=== PATIENT | female | born 1970 | race Caucasian/White ===

== ENCOUNTER 2017-02-01 08:20 | Emergency (ER) | payer OTHER ==
--- NOTE | 2017-02-04 19:03 | ER ---
ADMIT: 02/01/2017 RM/LOC: ER [facility] MR#: [id number] [id number] [place] [address] [place] [address] Emergency Room Report SEX: F AGE: 46 : 1970 DATE: 02/01/2017 ADDENDUM: This 46-year-old white female coming with anxiety. She has Xanax, but is probably under dosing herself. We are just going to change her a little bit until she gets back home. She should take 1 at night since she said she wakes up and she has more anxiety in the morning, but she does not always take the Xanax at night. She definitely needs to follow up with her doctor when she is home. CONDITION ON DISCHARGE: Good. Barber Fonseca MD/ [facility] JOB #: [id number] CC: Barber Fonseca MD, Attending Physician UNKNOWN, Family Physician
== END 2017-02-01 10:20 | disposition home or self-care (01) ==
LOC: ER 08:20
DX: F41.1 Generalized anxiety disorder (principal); Z90.710 Acquired absence of both cervix and uterus; Z90.49 Acquired absence of other specified parts of digestive tract; Z79.899 Other long term (current) drug therapy